=== PATIENT | male | born 1995 | race Caucasian/White ===

== ENCOUNTER 2021-06-07 10:40 | Emergency (ER) | payer SELFPAY ==
[~2021-06-07] VITALS: Ht 185.4 cm; Wt 77.3 kg
[2021-06-07 10:55] VITALS: BP 141/90
== END 2021-06-07 11:45 | disposition left against medical advice (07) ==
LOC: ED 10:40
DX: L03.011 Cellulitis of right finger (principal); F17.210 Nicotine dependence, cigarettes, uncomplicated